=== PATIENT | female | born 1975 | race Caucasian/White ===

== ENCOUNTER 2018-12-27 15:19 | Emergency (ER) | payer MEDICAID ==
[~2018-12-27] VITALS: Ht 157.5 cm; Wt 70.0 kg
--- NOTE | 2018-12-27 15:50 | NUR ---
PT STATES SHE HAD SUDDEN ONSET RIGHT EYE VISION CHANGE. SHE CAN ONLY SEE LARGE OBJECTS, BLURRY.
--- NOTE | 2018-12-27 17:04 | NUR ---
MD MARTIN COMPLETED. AWAITING EYE CONSULT. FAMILY AT BEDSIDE
--- NOTE | 2018-12-27 18:34 | NUR ---
REPERTOIRE MANAGER WITH PATIENT
[2018-12-27 19:17] VITALS: BP 136/84
== END 2018-12-27 19:19 | disposition home or self-care (01) ==
LOC: ED 16:35
DX: H26.9 Unspecified cataract (principal)
CPT/HCPCS: 99283